=== PATIENT | male | born 1970 | race Caucasian/White ===

== ENCOUNTER 2023-11-02 09:55 | Inpatient (IN) | payer OTHER, SELFPAY ==
[2023-10-31] VITALS (13 sets, daily range): BP systolic 78–122; BP diastolic 42–66; PULSE 87; BMI 49.5; BMI 48.0
[2023-10-31 15:52] LABS: % Basophils 0.4 % (0-2); % Eosinophils 3.8 % (0-6); % Immature Granulocytes 1.7 % (0-0.5); % Lymphocytes 13.4 % (20.5-51.1); % Monocytes 9.4 % (1.7-9.3); % Neutrophils 71.3 % (42.2-75.2); Absolute Basophils 0.1 10^3/uL (0-0.2); Absolute Eosinophils 0.5 10^3/uL (0-0.7); Absolute Immature Granulocytes 0.2 10^3/uL (0-0.05); Absolute Lymphocytes 1.9 10^3/uL (1.2-3.4); Absolute Monocytes 1.3 10^3/uL (0.1-0.6); Hematocrit 36.3 % (39.0-52.0); Hemoglobin 12.7 g/dL (13.0-18.0); Mean Corpuscular Hgb 28.9 pg (27.0-31.0); Mean Corpuscular Volume 82.5 fL (80.0-94.0); Mean Platelet Volume 11.6 fL (7.4-10.4); Nucleated Red Blood Cells % 0 % (-); Platelet Count 152 10^3/uL (130-400); Red Cell Dist. Width 13.9 % (11.5-14.5)
[2023-10-31] MEDS: NSS 1000 IV (16:00)
[2023-10-31 16:06] LABS: ALT (SGPT) 30 U/L (0-50); AST (SGOT) 89 U/L (17-59); Acetaminophen < 10 ug/ml (10-30); Albumin 3.4 g/dl (3.5-5.0); Alcohol None Detected; Alkaline Phosphatase 67 U/L (38-126); Blood Urea Nitrogen 44 mg/dl (9-20); Calcium 8.9 mg/dl (8.4-10.2); Carbon Dioxide 23 mmol/L (22-30); Chloride 101 mmol/L (98-107); Estimated Creatinine Clearance 101 ml/min; Glucose 144 mg/dl (70-99); Potassium 4.3 mmol/L (3.5-5.1); Salicylate < 1.0 mg/dl (2.0-20.0); Sodium 132 mmol/L (135-145); Total Bilirubin 3.2 mg/dl (0.2-1.3); eGFR 56.02
[2023-10-31 16:29] LABS: B.E. -2.6 mmol/L; HCO3 23.7 mmol/L (21-28); O2 Saturation % 96.6 % (94-98); PCO2 46 mmHg (35-48); PO2 85 mmHg (83-108); pH 7.32 (7.35-7.45)
--- NOTE | 2023-10-31 17:29 | ED.GENMED ---
History of Present Illness
General
Chief Complaint: Fall
Source: patient, spouse and ambulance crew
Exam Limitations: none
Time Seen by Provider: 10/31/23 15:40
Travel History
Have you had any contact with someone who has COVID-19?: No
Do you have any symptoms of coronavirus? Fever > 100 degrees, chills, cough, shortness of breath, sore throat, loss of taste or smell, muscle aches, or headache?: No
History of Present Illness
History of Present Illness:
53-year-old male total knee replacement 3 days ago. Discharged 2 days ago. Was mildly lethargic yesterday. More lethargy today and collapsed on the bathroom floor. His knee was in an awkward position under him. Bleeding from the knee. Appeared
deformed per the medics. Patient has no complaints related to the knee. Discussed with the patient's . He is taken 15 narcotic pain pills in the last 2 days.
Past History
Past History
ED Past Medical History: HTN, NIDDM and Other (MS)
ED Past Surgical History: Other (Hernia repair)
Social History
Tobacco: Former smoker
Alcohol: None
Personal:
Living: with family
Review of Systems
Review of Systems
All Other Systems: Not applicable
Constitutional: Denies fever
Respiratory: Reports no symptoms
Cardiac: Reports no symptoms
Phy Exam
Physical Exam
Physical Exam:
GENERAL: Lethargic. Sleepy at times. But arousable. No scalp trauma
EYE: Orbits normal. Pinpoint pupils bilaterally
NECK: Supple, nontender
CARDIAC: Regular rate and rhythm without any obvious murmurs.
LUNGS: No respiratory distress. At times decreased effort. Elevated BMI
ABDOMEN: Soft, without focal tenderness or distention
NEUROLOGICAL: Alert and oriented , grossly non-focal. At times lethargic but will awaken and talk.
SKIN: Warm and dry, no rash or lesion, no discoloration, skin intact.
MUSCULOSKELETAL: Bloody Roger wrap to the right knee. Wound VAC with significant blood under the dressing. Later this was removed as per orthopedics with a well-appearing wound with minimal very superficial dehiscence
PSYCH: Normal and appropriate interaction.
Course
Orders/Labs/Results
Orders:
Orders
10/31/23 Dinner
2200 calorie (18 carb) Diabetic
At Your Request: Full Participation
Does patient need a safe tray?: No
10/31/23 15:40
CT Head W/o Iv Contrast Urgent
Comment:
Reason For Exam: Change in mental status
Cardiac Monitoring- Treatment ONCE
IV Insert/Care/Rem.- Treatment PRN
0.9% Sodium Chloride 1000 ml [Nss] 1,000 ml IV BOLUS
O2 Therapy [RESP] Stat
Titrate/Wean O2 to maintain O2 sat greater than (%): 94
Pulse Ox/cont/shift [RESP] Stat
Quantity: 1
10/31/23 15:41
Electrocardiogram (*1) Stat
Reason for Study: Other
Other Reason for Exam: neuro symptoms
EKG- Treatment ONCE
10/31/23 15:45
Acetaminophen Urgent
Alcohol Urgent
Complete Blood Count/With Diff Urgent
Comprehensive Metabolic Panel Urgent
Salicylate Urgent
10/31/23 15:54
CXR2 [CR Chest - 2 Views ] Urgent
Comment:
Reason For Exam: Hypoxia
Knee, Right 4 or More Views [CR Knee- Right 4 Or More View*] Urgent
Comment:
Reason For Exam: Recent knee replacement. Trauma today
10/31/23 16:18
ABG [Arterial Blood Gas] Urgent
%Oxygen/Room Air: 6l
10/31/23 18:52
Admit/Transfer Patient As Directed
Co-Sign Provider:
Level of Care: Observation services
Assign to:: Telemetry
Physician / Group: Dr. Jcarlos Butler/Hospitalists
Diagnosis: Lethargy
Reason for Telemetry: Arrhythmia
Date to Stop Telemetry: 11/03/23
Time to Stop Telemetry: 11:00
10/31/23 18:54
Code Status As Directed
Resuscitation Status: Full Code
10/31/23 18:59
Ot Eval And Treat Routine
Pt Eval And Treat Routine
Activity Level: As Tolerated
10/31/23 19:00
WOUND/OSTOMY CONSULT Routine
Reason for Consult: Lower extremity wounds
Neurovascular Checks As Directed
Location: Bilateral Lower extremity
Frequency: q4h
10/31/23 19:04
Dextrose 50%-Water [Dextrose 50% Syringe] 12.5 grams IV [id number] PRN
Glucagon [GlucaGen] 1 mg IM PRN PRN
Bedside Glucose Monitoring As Directed
Frequency: AC&HS
Comment: Change to q6h if pt on TPN, tube feeding or not eating
10/31/23 20:00
Flush (0.9% Sodium Chloride) [Flush (Nss)] See Dose Instructions IV PER PROTOCOL
10/31/23 20:16
CR Knee- Right 4 Or More View* Stat
Comment:
Reason For Exam: fall
10/31/23 20:21
BMP [Basic Metabolic Panel] Stat
CBC/No Diff [Complete Blood Count/No Diff] Stat
Drug Screen, Urine [Urine Drug Abuse Screen] Routine
Date Specimen was Collected: 10/31/23
Time Specimen was Collected: 20:19
Fentanyl, Urine Routine
Urine Culture Stat
JUAN C Source: Urine
Specimen Description:
Obtained by: [facility]
Date Specimen was Collected: 10/31/23
Time Specimen was Collected: 20:48
0.9% Sodium Chloride 250 ml [Nss] 250 ml IV BOLUS
10/31/23 20:22
Bladder Scan As Directed
Follow Bladder Retention/Intermittent Cath Algorithm?: Yes
PRN if no void in __ hours: 6
Frequency: Per Retention Algorithm
If Bladder Scan Result >: 400
then:: Straight cath
Straight Cath As Directed
Frequency: Per Retention Algorithm
Additional Instructions: straight cath as needed per acute urinary retention algorithm for 24 hrs
Additional Instructions: for bladder scan greater than 400 mL
10/31/23 20:42
Lactated Ringers [Lr] 500 ml IV BOLUS
10/31/23 20:43
Transfer Patient As Directed
Transfer to: ICU
10/31/23 20:44
Blood Culture Stat
JUAN C Source: Blood/Venous
Specimen Description:
10/31/23 20:55
Vancomycin [Vancocin] 2,000 mg 0.9% Sodium Chloride 500 ml [Nss] 500 ml IV NOW
10/31/23 20:59
Morales Catheter [Catheter- Indwelling] As Directed
Reason for insertion: Acute Retention
Discontinue Date/Time: 11/03/23 0600
10/31/23 21:02
ABG [Arterial Blood Gas] Stat
%Oxygen/Room Air: 93 RA
10/31/23 21:09
Lactic Acid Stat
Procalcitonin Stat
PCT Algorithmm Indication: Sepsis
10/31/23 21:46
Records Request [Obtain Records] As Directed
Dates of Information to be Released: September 2023 to October 2023
Type of Information Requested: Entire Record
Obtain Records from: [facility] in [place], [place]
10/31/23 21:52
ORTHOPEDIC CONSULT Routine
Consulting Provider: Polo Almendarez
Was physician already notified: Yes
Reason for consult: Bleeding from recent RT total knee replacement
10/31/23 22:00
Piperacillin/Tazo 3.375 Gram [Zosyn] 3.375 grams in 50 ml IV Q6H
VANCOMYCIN Pharmacy to Dose [VANCOCIN Pharmacy to Dose] 1 each Pharmacy To Prepare [Call Pharmacy To Prepare] 0 ml IV PER PROTOCOL
10/31/23 22:20
Naloxone [Narcan] 0.4 mg IV NOW STA
10/31/23 22:29
Restraints - Non Violent As Directed
Justification-Patient:: 1-Attempts to remove tube
Restraint Type-: Soft Limb-L&R Wrist/4rail
Apply From (date): 10/31/23
Apply from (time): 22:29
Remove (date): 11/01/23
Remove (time): 23:59
10/31/23 22:47
Assembly Manager Consult Routine
Consulting Provider: Patrice Unger
Was physician already notified: Yes
Reason for consult: Sepsis
0.9% Sodium Chloride 1000 ml [Nss] 1,000 ml IV 75 mls/hr
Acetaminophen [Tylenol] 1,000 mg PO Q6HPRN PRN
Aspirin Low Dose EC [Aspir Low (Enteric Coated)] 81 mg PO BID
Carvedilol [Coreg] 25 mg PO BID
Docusate Sodium [Colace] 100 mg PO BID
Heparin 5,000 units SC Q8
Sennosides [Senokot] 8.6 mg PO BIDPRN PRN
Zolpidem Tartrate [Ambien] 10 mg PO HSPRN PRN
10/31/23 22:47
Consult Notification Routine
Specialty to Notify: Infectious Disease
Date consulting provider notified: 11/01/23
Time consulting provider notified: 07:00
Notified:: Provider
INFECTIOUS DISEASE CONSULT Routine
Consulting Provider: Cale Yusuf
Was physician already notified: No
Reason for consult: sepsis
Activity As Directed
Activity Level: As Tolerated
Intake/ Output As Directed
Frequency: q12h
Vital Signs As Directed
Frequency: Per unit guidelines
DX Deep Vein Thrombosis Video Routine
10/31/23 23:00
Alprazolam [Xanax] 2 mg PO BID
Lactated Ringers [Lr] 1,000 ml IV 125 mls/hr
Pregabalin [Lyrica] 150 mg PO BID
10/31/23 23:29
Troponin I Q6H
10/31/23 23:55
Pt Screening Request from [facility] Routine
Speech Screening from [facility] Routine
11/01/23 03:02
Naloxone [Narcan] 0.4 mg .ROUTE .STK-MED ONE
11/01/23 03:27
Naloxone [Narcan] 0.4 mg IV NOW STA
11/01/23 03:29
Naloxone [Narcan] 0.4 mg IV ONCE PRN PRN
11/01/23 04:53
Complete Blood Count/With Diff IN AM
Comprehensive Metabolic Panel IN AM
Glycohemoglobin (HgbA1c) IN AM
Magnesium IN AM
PT/INR [Prothrombin Time] IN AM
PTT IN AM
Troponin I Q6H
Vancomycin Random IN AM
11/01/23 07:30
Insulin Aspart Corrective Low [Novolog Flexpen-Low Resistance] See Protocol SC AC
11/01/23 08:00
Ezetimibe [Zetia] 10 mg PO DAILY
Multivitamin [Theragran] 1 tablet PO DAILY
Polyethylene Glycol Powder [Miralax] 17 grams PO DAILY
11/01/23 08:32
Arterial Blood Gas Routine
%Oxygen/Room Air: He is on 15 L/min currently
11/01/23 10:57
Bipap [RESP] HS
Patient to use own unit?: No
Inspiratory Pressure (cm H2O): 15
Expiratory Pressure (cm H2O): 8
Instructions: use HS and as needed during day
11/01/23 11:57
Urinalysis Routine
Date Specimen was Collected: 11/01/23
Time Specimen was Collected: 11:48
Urine Microscopic Routine
Date Specimen was Collected: 11/01/23
Time Specimen was Collected: 11:48
Blood Culture Routine
JUAN C Source: Blood/Venous
Specimen Description:
11/01/23 12:51
Alprazolam [Xanax] 0.25 mg PO Q8HPRN PRN
11/01/23 12:53
Precautions As Directed
Type of Precautions: Other
Comment: Fall precautions
11/01/23 12:59
Admit/Transfer Patient As Directed
Co-Sign Provider:
Transfer to: U- Intermediate Care
11/01/23 15:40
Bladder Scan As Directed
Follow Bladder Retention/Intermittent Cath Algorithm?: Yes
PRN if no void in __ hours: 6
Frequency: Per Retention Algorithm
If Bladder Scan Result >: 400
then:: Straight cath
Discontinue Morales Catheter As Directed
Comment:
Straight Cath As Directed
Frequency: Per Retention Algorithm
Additional Instructions: straight cath as needed per acute urinary retention algorithm for 24 hrs
Additional Instructions: for bladder scan greater than 400 mL
11/01/23 15:41
Bladder Scan As Directed
Follow Bladder Retention/Intermittent Cath Algorithm?: Yes
PRN if no void in __ hours: 6
Frequency: Per Retention Algorithm
If Bladder Scan Result >: 400
then:: Straight cath
Straight Cath As Directed
Frequency: Per Retention Algorithm
Additional Instructions: straight cath as needed per acute urinary retention algorithm for 24 hrs
Additional Instructions: for bladder scan greater than 400 mL
11/02/23 00:45
Acetaminophen 1000MG/100Ml [Ofirmev] 1,000 mg in 100 ml IV ONCE
Acetaminophen IV Indication:: Targeted Temp Management
11/02/23 04:22
Complete Blood Count/With Diff IN AM
Comprehensive Metabolic Panel IN AM
Magnesium IN AM
Phos [Phosphorus] IN AM
Venous Blood Gas IN AM
%Oxygen/Room Air: 4L/min
11/02/23 07:49
Transfer Patient As Directed
Transfer to: Medical/Surgical
11/02/23 08:00
Meloxicam [Mobic] 15 mg PO DAILY
Abnormal Lab Results
10/31/23 10/31/23 10/31/23
15:45 16:18 20:21
WBC 14.0 H 10^3/uL 14.3 H 10^3/uL
(4.8-10.8) (4.8-10.8)
RBC 4.40 L 10^6/uL 4.35 L 10^6/uL
(4.70-6.10) (4.70-6.10)
Hgb 12.7 L g/dL 12.4 L g/dL
(13.0-18.0) (13.0-18.0)
Hct 36.3 L % 36.8 L %
(39.0-52.0) (39.0-52.0)
MCHC
MPV 11.6 H fL 12.1 H fL
(7.4-10.4) (7.4-10.4)
Abs Immat Gran (auto) 0.2 H 10^3/uL
(0-0.05)
Absolute Neuts (auto) 10.0 H 10^3/uL
(1.4-6.5)
Absolute Monos (auto) 1.3 H 10^3/uL
(0.1-0.6)
Immature Gran % 1.7 H %
(0-0.5)
Lymphocytes % 13.4 L %
(20.5-51.1)
Monocytes % 9.4 H %
(1.7-9.3)
Eosinophils %
PT
APTT
pH 7.32 L
(7.35-7.45)
pCO2
pO2
ABG O2 Sat (Measured)
VBG pO2
VBG HCO3
Sodium 132 L mmol/L 132 L mmol/L
(135-145) (135-145)
Carbon Dioxide 20 L mmol/L
(22-30)
BUN 44 H mg/dl 45 H mg/dl
(9-20) (9-20)
Creatinine 1.5 H mg/dL 1.7 H mg/dL
(0.7-1.3) (0.7-1.3)
Glucose 144 H mg/dl 133 H mg/dl
(70-99) (70-99)
Hemoglobin A1c
Total Bilirubin 3.2 H mg/dl
(0.2-1.3)
AST 89 H U/L
(17-59)
Troponin I
Total Protein 6.0 L g/dl
(6.3-8.2)
Albumin 3.4 L g/dl
(3.5-5.0)
Procalcitonin
Urine Ketones
Urine Occult Blood
Urine RBC
Urine Bacteria
Urine Glucose
Salicylates < 1.0 L mg/dl
(2.0-20.0)
Urine Opiates Screen Positive H
(Negative)
Ur Oxycodone Screen Positive H
(Negative)
Acetaminophen < 10 L ug/ml
(10-30)
U Benzodiazepines Scrn Positive H
(Negative)
POC Glucose
10/31/23 10/31/23 10/31/23
21:02 21:09 23:29
WBC
RBC
Hgb
Hct
MCHC
MPV
Abs Immat Gran (auto)
Absolute Neuts (auto)
Absolute Monos (auto)
Immature Gran %
Lymphocytes %
Monocytes %
Eosinophils %
PT
APTT
pH 7.34 L
(7.35-7.45)
pCO2
pO2
ABG O2 Sat (Measured)
VBG pO2
VBG HCO3
Sodium
Carbon Dioxide
BUN
Creatinine
Glucose
Hemoglobin A1c
Total Bilirubin
AST
Troponin I 0.160 H* ng/ml
Total Protein
Albumin
Procalcitonin 0.64 H ng/ml
(0.0-0.25)
Urine Ketones
Urine Occult Blood
Urine RBC
Urine Bacteria
Urine Glucose
Salicylates
Urine Opiates Screen
Ur Oxycodone Screen
Acetaminophen
U Benzodiazepines Scrn
POC Glucose
11/01/23 11/01/23 11/01/23
03:03 04:53 07:53
WBC
RBC 4.04 L 10^6/uL
(4.70-6.10)
Hgb 11.3 L g/dL
(13.0-18.0)
Hct 35.0 L %
(39.0-52.0)
MCHC 32.3 L g/dL
(33.0-37.0)
MPV 11.9 H fL
(7.4-10.4)
Abs Immat Gran (auto)
Absolute Neuts (auto) 7.4 H 10^3/uL
(1.4-6.5)
Absolute Monos (auto) 1.0 H 10^3/uL
(0.1-0.6)
Immature Gran %
Lymphocytes % 14.6 L %
(20.5-51.1)
Monocytes % 9.6 H %
(1.7-9.3)
Eosinophils %
PT 15.7 H Sec
(11.4-14.6)
APTT 45.8 H Sec
(23.4-35.0)
pH
pCO2
pO2
ABG O2 Sat (Measured)
VBG pO2
VBG HCO3
Sodium 134 L mmol/L
(135-145)
Carbon Dioxide
BUN 41 H mg/dl
(9-20)
Creatinine
Glucose 150 H mg/dl
(70-99)
Hemoglobin A1c 7.0 H %
(4.0-5.6)
Total Bilirubin 2.6 H mg/dl
(0.2-1.3)
AST 78 H U/L
(17-59)
Troponin I 0.118 H* D ng/ml
Total Protein 5.6 L g/dl
(6.3-8.2)
Albumin 3.0 L g/dl
(3.5-5.0)
Procalcitonin
Urine Ketones
Urine Occult Blood
Urine RBC
Urine Bacteria
Urine Glucose
Salicylates
Urine Opiates Screen
Ur Oxycodone Screen
Acetaminophen
U Benzodiazepines Scrn
POC Glucose 133 H mg/dl 152 H mg/dl
(70-99) (70-99)
11/01/23 11/01/23 11/01/23
08:32 09:37 11:57
WBC
RBC
Hgb
Hct
MCHC
MPV
Abs Immat Gran (auto)
Absolute Neuts (auto)
Absolute Monos (auto)
Immature Gran %
Lymphocytes %
Monocytes %
Eosinophils %
PT
APTT
pH 7.30 L
(7.35-7.45)
pCO2 52 H mmHg
(35-48)
pO2 169 H mmHg
(83-108)
ABG O2 Sat (Measured) 98.9 H %
(94-98)
VBG pO2
VBG HCO3
Sodium
Carbon Dioxide
BUN
Creatinine
Glucose
Hemoglobin A1c
Total Bilirubin
AST
Troponin I
Total Protein
Albumin
Procalcitonin
Urine Ketones 1+ A
(Negative)
Urine Occult Blood 2+ A
(Negative)
Urine RBC 3-6 A /HPF
(0-2)
Urine Bacteria Few A
(Negative)
Urine Glucose Trace A
(Negative)
Salicylates
Urine Opiates Screen
Ur Oxycodone Screen
Acetaminophen
U Benzodiazepines Scrn
POC Glucose 161 H mg/dl
(70-99)
11/01/23 11/01/23 11/01/23
12:34 16:27 21:14
WBC
RBC
Hgb
Hct
MCHC
MPV
Abs Immat Gran (auto)
Absolute Neuts (auto)
Absolute Monos (auto)
Immature Gran %
Lymphocytes %
Monocytes %
Eosinophils %
PT
APTT
pH
pCO2
pO2
ABG O2 Sat (Measured)
VBG pO2
VBG HCO3
Sodium
Carbon Dioxide
BUN
Creatinine
Glucose
Hemoglobin A1c
Total Bilirubin
AST
Troponin I
Total Protein
Albumin
Procalcitonin
Urine Ketones
Urine Occult Blood
Urine RBC
Urine Bacteria
Urine Glucose
Salicylates
Urine Opiates Screen
Ur Oxycodone Screen
Acetaminophen
U Benzodiazepines Scrn
POC Glucose 156 H mg/dl 141 H mg/dl 186 H mg/dl
(70-99) (-99) (70-99)
11/02/23 11/02/23
04:22 07:41
WBC
RBC 3.76 L 10^6/uL
(4.70-6.10)
Hgb 10.8 L g/dL
(13.0-18.0)
Hct 31.9 L %
(39.0-52.0)
MCHC
MPV 11.7 H fL
(7.4-10.4)
Abs Immat Gran (auto)
Absolute Neuts (auto)
Absolute Monos (auto) 0.7 H 10^3/uL
(0.1-0.6)
Immature Gran %
Lymphocytes %
Monocytes % 10.6 H %
(1.7-9.3)
Eosinophils % 6.1 H %
(0-6)
PT
APTT
pH
pCO2
pO2
ABG O2 Sat (Measured)
VBG pO2 224 H mmHg
(30-50)
VBG HCO3 27.9 H mmol/L
(22-27)
Sodium
Carbon Dioxide
BUN 21 H mg/dl
(9-20)
Creatinine 0.6 L mg/dL
(0.7-1.3)
Glucose 158 H mg/dl
(70-99)
Hemoglobin A1c
Total Bilirubin 2.5 H mg/dl
(0.2-1.3)
AST
Troponin I
Total Protein 5.2 L g/dl
(6.3-8.2)
Albumin 2.7 L g/dl
(3.5-5.0)
Procalcitonin
Urine Ketones
Urine Occult Blood
Urine RBC
Urine Bacteria
Urine Glucose
Salicylates
Urine Opiates Screen
Ur Oxycodone Screen
Acetaminophen
U Benzodiazepines Scrn
POC Glucose 167 H mg/dl
(70-99)
11/02/23 04:22
11/02/23 04:22
Vital Signs
Initial and Last Documented VS:
Initial Vital Signs
Temp Pulse Resp Pulse Ox
98.8 F 78 21 94
10/31/23 15:40 10/31/23 15:40 10/31/23 15:40 10/31/23 15:40
Last Documented Vital Signs
Temp Pulse Resp BP Pulse Ox
98.6 F 68 20 165/96 95
11/02/23 11:19 11/02/23 11:19 11/02/23 11:19 11/02/23 11:20 11/02/23 12:00
*Radiology
Radiology exam reviewed: preliminary read by ED provider (Negative x-ray) and radiology read reviewed (Negative x-rays)
*Pulse Oximetry
Patient hypoxic: no
*EKG
Interpreted by ED Provider?: Yes
Interpretation: abnormal
Comparison EKG: changes noted
Heart Rate: 78
Rate: normal
Rhythm: sinus
Tolono: normal axis
Interval: normal interval
QRS Pattern: normal QRS
Ischemia: non-specific ST changes
*Contact Center Associate Interpretation
Rate: normal
Interpretation: normal
Heart Rate: 80
Rhythm: sinus
*Critical Care Note
Total Time (30-74mins, 75-104mins- exclusive of procedures): Not Applicable
Update Note
Update Note:
Patient is remained stable. More alert than earlier. Likely all medication and secondary respiratory issues also influenced by his BMI. Discussed with patient's orthopedist. Right knee was rewrapped sterilely.
ED Attending Note
-
Portions of this chart may have been created with voice recognition software.� Occasional wrong word or��sound alike� substitutions may have occurred due to the inherent limitations of voice recognition software.
Discharge Plan
Departure
Patient Disposition: Admit
Date of Disposition: 10/31/23
Time of Disposition: 17:39
Presentation/result/management discussed w/ accepting MD/DO: Hospitalist
Discharge Problem:
Change in mental status/lethargy, Likely secondary to medications, Recent knee replaced, Dehydration
Interventions
Interventions:
*Risk Screen - Suicide Last Done: 10/31/23 16:27
*General Assessment Last Done: 10/31/23 15:50
*Neglect/Abuse Screening Last Done: 10/31/23 15:50
ED- Fall Risk Assessment Last Done: 10/31/23 16:26
*ED COVID-19 Vaccine History Last Done: 10/31/23 15:50
*Nursing Disposition Last Done: 10/31/23 22:15
ED-Musculoskeletal Assessment Last Done: 10/31/23 15:50
ED- Neurological Assessment Last Done: 10/31/23 15:50
ED-Skin Assessment Last Done: 10/31/23 15:50
Discharge Date and Time
Discharge Date/Time: 10/31/23 22:15
--- NOTE | 2023-10-31 18:27 | HPS.HSE ---
Family Physician
-
Family Physician:
Chief Complaint
-
Lethargy, Weakness, Passed out
History of Present Illness
53 y/o male with past medical history of requiring narcan with narcotic pain medications, multiple sclerosis on Copaxone, hypertension and type 2 diabetes mellitus with neuropathy, and hyperlipidemia presented after having a total knee replacement 3
days go, and discharged 2 days ago. Patient was lethargic today and fell on the bathroom floor; reportedly he took 15 narcotic pain medications in the past 2 days. Patient was not a great historian so his helped with patient's history. Patient
denied any dizziness, chest pain or palpitations. Patient recently had knee right surgery at [facility] by Dr. Saucedo who is with [facility].
Medical History
Past Medical History
Past Medical History: Reports Other (As per HPI above)
Past Surgical History: Reports Orthopedic and Other (Hernia Repair)
Social History
Tobacco: Non-smoker
Alcohol: None
Drug: None
Family History
Family History: Diabetes and Other (Heart Disease, Thyroid)
Allergies / Home Medications
Allergies reflects when Allergies were last updated in [facility].
Home Medications with original date entered in [facility]
Allergy/Medication List:
Allergies
Allergy/AdvReac Type Severity Reaction Status Date / Time
No Known Allergies Allergy Unverified 01/01/21 13:38
Home Medications
acetaminophen 500 mg tablet (Tylenol Extra Strength) 1,000 mg PO Q6HPRN PRN mild pain 10/31/23
alprazolam 2 mg tablet (Xanax) 2 mg PO BID 10/31/23
aspirin 81 mg tablet,delayed release 81 mg PO BID 10/31/23
carvedilol 25 mg tablet (Coreg) 25 mg PO BID 10/31/23
dapagliflozin propanediol 10 mg tablet (Farxiga) 10 mg PO DAILY 10/31/23
ezetimibe 10 mg tablet (Zetia) 10 mg PO DAILY 10/31/23
losartan 100 mg tablet 100 mg PO DAILY 10/31/23
meloxicam 15 mg tablet 15 mg PO DAILYPRN PRN mild pain 10/31/23
oxycodone 5 mg tablet 5 mg PO Q6HPRN PRN severe pain 10/31/23
pregabalin 150 mg capsule (Lyrica) 150 mg PO BID 10/31/23
sennosides 8.6 mg tablet (senna) 8.6 mg PO BIDPRN PRN consstipation 10/31/23
therapeutic multivitamin 1 tab PO DAILY 10/31/23
zolpidem 10 mg tablet (Ambien) 10 mg PO HSPRN PRN sleep 10/31/23
Review of Systems
-
A 12 point ROS was completed and negative except as noted: Yes
Physical Exam
Vital Signs
Vital Signs
Temp Pulse Resp BP Pulse Ox
98.8 F 77 18 120/62 93
10/31/23 15:40 10/31/23 17:34 10/31/23 17:34 10/31/23 17:34 10/31/23 17:34
Physical Exam
General: No Apparent Distress, Comfortable and Conversant
HEENT: NormoCephalic; No Moist mucous membranes
Respiratory: Clear
Cardiac: S1/S2 and Regular Rhythm
GI: Soft, Non Tender and Normal Bowel Sounds
Musculoskeletal: No Cyanosis and Other (Right knee in dressing for post knee replacement)
Skin: Warm and Dry
Neuro: Awake, Alert and AO x 3
Psych: Calm and Intact Judgment/Insight
Laboratory Results
-
10/31/23 15:45
10/31/23 15:45
Laboratory Results
pH 7.32 (7.35-7.45) L 10/31/23 16:18
pCO2 46 mmHg (35-48) 10/31/23 16:18
pO2 85 mmHg (83-108) 10/31/23 16:18
HCO3 23.7 mmol/L (21-28) 10/31/23 16:18
Total Bilirubin 3.2 mg/dl (0.2-1.3) H 10/31/23 15:45
AST 89 U/L (17-59) H 10/31/23 15:45
ALT 30 U/L (0-50) 10/31/23 15:45
Alkaline Phosphatase 67 U/L (38-126) 10/31/23 15:45
Impression/Plan
-
Assessment/Plan
Lethargy Episodes Post-Op Recent Surgery
Recent Total Knee Replacement 3 days prior to presentation
-Reportedly he took 15 narcotic pain pills in the past 2 days
-He has a history of needing Narcan from narcotics
-Will consider echo
-Avoid all narcotic pain medications
-Continue home scheduled Xanax to avoid withdrawal or seizures
-Lovenox DVT PPx
-Wound care
-Neurovascular checks
-Continue tele monitoring
-Will consider ortho consult
Concern for Acute Kidney Injury
-Patient with no PO intake for 1-2 days on presentation
-Continue IV fluids
Multiple Sclerosis on Copaxone
-Asked patient's to bring in the medicine so he can continue it here
Hypertension - Hold home Losartan given renal function
Type 2 Diabetes Mellitus - Sliding Scale Insulin and Accuchecks. Hold Farxiga for now.
Code Status: Full Code
DVT PPx: Heparin
[2023-10-31 20:35] LABS: Hematocrit 36.8 % (39.0-52.0); Hemoglobin 12.4 g/dL (13.0-18.0); Mean Corp Hgb Conc. 33.7 g/dL (33.0-37.0); Mean Corpuscular Hgb 28.5 pg (27.0-31.0); Mean Corpuscular Volume 84.6 fL (80.0-94.0); Mean Platelet Volume 12.1 fL (7.4-10.4); Platelet Count 186 10^3/uL (130-400); Red Blood Cell Count 4.35 10^6/uL (4.70-6.10); Red Cell Dist. Width 13.9 % (11.5-14.5); White Blood Cell Count 14.3 10^3/uL (4.8-10.8)
--- NOTE | 2023-10-31 20:39 | W.PN.UPDATE ---
Addendum entered and electronically signed by CHANDAN Franco 10/31/23 21:48:
last BP 94/60 MAP 67, bolus running at present. Dr. Lazo aware of the situation at present, will consult Ortho and will consult ID.
Original Note:
Update Note
Progress Note Update
RN notified MANAGER DAT[employer]MINISTRATION that patient noted to be on the floor with Right knee kneeling on the floor and blood noted outside the dressing. Patient seen and evaluated. patient sitting in the chair with Right leg up, Opened the dressing and noted open area with
blood with out oozing out at present, some steri strips in place. + pulses, neuro-vascular intact. Patient mildly lethargic, conversive, noted BP on low side, 80's/40's HR 80's, RA 95 RR 16, Afebrile. Will give NSS bolus, ordered Right knee Xray,
Stat ABG, Stat labs, Stat EKG, UA, Blood culture, lactic acid, procalcitonin and will start Vancomycin. Will transfer patient to ICU for possible sepsis. FALSEWORK BUILDER made aware. Dr. Zeng is aware.
[2023-10-31 20:48] LABS: Amphetamines Negative (Negative); Barbiturates Negative (Negative); Benzodiazepines Positive (Negative); Blood Urea Nitrogen 45 mg/dl (9-20); Buprenorphine Negative (Negative); Carbon Dioxide 20 mmol/L (22-30); Chloride 102 mmol/L (98-107); Cocaine Negative (Negative); Estimated Creatinine Clearance 89 ml/min; Glucose 133 mg/dl (70-99); Marijuana Negative (Negative); Methadone Negative (Negative); Methamphetamines Negative (Negative); Opiates Positive (Negative); Phencyclidine Negative (Negative); Sodium 132 mmol/L (135-145); Tricyclic Antidepressants Negative (Negative); eGFR 48.21
--- NOTE | 2023-10-31 20:51 | PHA.VAN.IN ---
Assessment
- Assessment
Renal Function: Unknown baseline (likely elevated compared to baseline at 1.7 vs ~0.6 in 2020)
Plan
- Plan
Initial / Loading Dose: 2000mg - administration pending
Maintenance Regimen: dosing by level
Monitoring: random 10/31 599
Given BMI, patient likely will be slow to accumulate - follow levels
Pharmacokinetics Vancomycin I
- -
Patient Age: 53
Patient Sex: Male
Vancomycin Day #: 1
Indication: [facility]
Requesting Provider: Maureen Leo
Pertinent Antimicrobial Allergies:
NKDA
Height / Weight:
Height 6 ft 3 in
Actual Weight 179.8 kg
Pertinent Past Medical History: BMI ~49.5, DM, TKA 3 days [employer], MS
- Vital Signs / Lab Results
Temp Pulse Resp BP Pulse Ox
98.8 F 80 24 120/62 95
10/31/23 15:40 10/31/23 18:00 10/31/23 18:00 10/31/23 17:34 10/31/23 19:45
Lab Results - Hematology
10/31/23 10/31/23
15:45 20:21
WBC 14.0 H 14.3 H
Lab Results - Chemistry
10/31/23 10/31/23
15:45 20:21
BUN 44 H 45 H
Creatinine 1.5 H 1.7 H
Estimated Creat Clear 101 89
Albumin 3.4 L
[2023-10-31 20:58] LABS: Potassium 4.2 mmol/L (3.5-5.1)
[2023-10-31 21:04] LABS: Fentanyl, Urine Negative (Negative)
[2023-10-31 21:08] LABS: B.E. -2.2 mmol/L; HCO3 23.7 mmol/L (21-28); PCO2 44 mmHg (35-48); PO2 92 mmHg (83-108); pH 7.34 (7.35-7.45)
[2023-10-31] MEDS: VANCOCIN 540 MG IV (21:12)
[2023-10-31] MEDS: LR 500 IV (21:17)
[2023-10-31 21:29] LABS: Lactic Acid 1.7 mmol/L (0.7-2.0)
[2023-10-31 21:57] LABS: Procalcitonin 0.64 ng/ml (0.0-0.25)
[2023-10-31] MEDS: NARCAN 0.400000000000000022 MG IV (22:33)
[2023-10-31] MEDS: ZOSYN 50 IV (22:38)
--- NOTE | 2023-10-31 23:00 | PTCARENOTE ---
PM meds not given, pt very difficult to arouse and unable to swallow pills at this time.
[2023-10-31] MEDS: NSS 250 IV (23:11)
[2023-10-31] MEDS: COREG PO (23:14)
[2023-10-31] MEDS: COLACE PO (23:14)
[2023-10-31] MEDS: ASPIR LOW (ENTERIC COATED) PO (23:14)
[2023-10-31] MEDS: HEPARIN 5000 UNITS SC (23:21)
[2023-10-31] MEDS: LR 1000 IV (23:37)
[2023-11-01] VITALS (78 sets, daily range): BP systolic 58–150; BP diastolic 42–124; PULSE 66–68; O2SAT 97; BMI 48.0
--- NOTE | 2023-11-01 00:12 | PTCARENOTE ---
received patient from the ED awake but confused conversation. mumbling at times, difficult to understand. pt slid from stretcher to bed with 6 person assist. difficulty staying awake for longer than 10seconds. sats in the 70's on 6L. respiratory
called to place patient on midflow. pt on 15L midflow still desatting to the 80's. Narcan given. pt woke up, talking, alert and oriented x3, pleasant, telling jokes. BP improved. after approximately 15 mins pt fell back asleep,able to arouse but
couldn't stay awake for longer than 10 seconds again, sats remain in the 80's. placed on cpap 10L.
[2023-11-01 03:14] LABS: Glucose - Point of Care 133 mg/dl (70-99)
--- NOTE | 2023-11-01 03:25 | PTCARENOTE ---
pt unresponsive. no response to sternal rub. narcan given. pt woke up confused, oriented to self only. trying to take off cpap mask. put back on midflow while awake.
[2023-11-01] MEDS: NARCAN 0.400000000000000022 MG IV (03:35)
--- NOTE | 2023-11-01 04:07 | W.PN.UPDATE ---
Update Note
Progress Note Update
2230 Patient presented to the ICU sleepy with decrease respiration. His�presentation is concerning for opioid overdose based on history and recent surgery pain management. Narcan was given and patient became responsive and able to manage airway
and RR increased. �
�
2330 Patient placed on Cpap for periods of apnea.�
�
0330 Patient noted to be obtunded repeat Narcan dosing and responded appropriately. PRN Narcan ordered. �
[2023-11-01] MEDS: ZOSYN 50 IV (05:03)
[2023-11-01 05:09] LABS: % Basophils 0.4 % (0-2); % Eosinophils 4.8 % (0-6); % Immature Granulocytes 0.4 % (0-0.5); % Lymphocytes 14.6 % (20.5-51.1); % Monocytes 9.6 % (1.7-9.3); % Neutrophils 70.2 % (42.2-75.2); Absolute Eosinophils 0.5 10^3/uL (0-0.7); Absolute Lymphocytes 1.5 10^3/uL (1.2-3.4); Absolute Neutrophils 7.4 10^3/uL (1.4-6.5); Hemoglobin 11.3 g/dL (13.0-18.0); Mean Corp Hgb Conc. 32.3 g/dL (33.0-37.0); Mean Corpuscular Volume 86.6 fL (80.0-94.0); Mean Platelet Volume 11.9 fL (7.4-10.4); Nucleated Red Blood Cells % 0 % (-); Platelet Count 145 10^3/uL (130-400); Red Blood Cell Count 4.04 10^6/uL (4.70-6.10); Red Cell Dist. Width 14.1 % (11.5-14.5); White Blood Cell Count 10.6 10^3/uL (4.8-10.8)
[2023-11-01 05:20] LABS: ALT (SGPT) 36 U/L (0-50); AST (SGOT) 78 U/L (17-59); Alkaline Phosphatase 73 U/L (38-126); Blood Urea Nitrogen 41 mg/dl (9-20); Calcium 8.5 mg/dl (8.4-10.2); Carbon Dioxide 24 mmol/L (22-30); Chloride 105 mmol/L (98-107); Estimated Creatinine Clearance 124 ml/min; Glucose 150 mg/dl (70-99); Magnesium 2.2 mg/dl (1.6-2.3); Potassium 4.2 mmol/L (3.5-5.1); Sodium 134 mmol/L (135-145); Total Bilirubin 2.6 mg/dl (0.2-1.3); Total Protein 5.6 g/dl (6.3-8.2); eGFR > 60.00
[2023-11-01 05:24] LABS: INR 1.26; PT 15.7 Sec (11.4-14.6)
[2023-11-01 05:25] LABS: APTT 45.8 Sec (23.4-35.0); Vancomycin Random 11.2 ug/ml
[2023-11-01 05:41] LABS: Troponin I 0.118 ng/ml
--- NOTE | 2023-11-01 07:21 | CON.ID ---
Consultation
-
Date/Time Consultation Requested: 10/31/2023 2247
Date/Time Consultation Performed: 11/01/2023 07:15
Requesting Provider: Dr. Leo
Performing Provider: Dr. Yusuf
Reason for Consultation: Sepsis
Chief Complaint / Past History
History of Present Illness
Jeramie Jensen is a 53-year-old male being evaluated at the request of Dr. Leo regarding sepsis. History is obtained from chart review. Little history was obtained from the patient secondary to significant somnolence.
The patient has a significant past medical history of diabetes mellitus, multiple sclerosis, and underwent a total knee replacement approximately 4 days ago at a facility in [place]. He was discharged 3 days ago to home. Per review of notes he
was mildly lethargic the day before yesterday and yesterday reportedly collapsed on the bathroom floor. When found, his knee was 'in an awkward position' and there was some bleeding noted from the knee. Notes indicate the patient has taken
significant narcotics over the past 2 days.
Workup in the ER revealed a leukocytosis, and ongoing bleeding from the knee, along with hypotension and Infectious Diseases is asked to manage further antibiotic therapy.
Past History
Additional Past Medical History:
HTN
DM
Multiple sclerosis (on Copaxone)
Additional Past Surgical History:
Hernia repair
Total right knee replacement
Allergy History:
No Known Allergies Allergy (Unverified 01/01/21 13:38)
Medications Reviewed: Yes
Current Antibiotics:
Vancomycin (dosed per pharmacy)
Zosyn 3.375 g IV every 6 hours
Social History
Tobacco: Non-Smoker
Alcohol: None
Drug: None
Personal:
Living: With Family
Review of Systems
Vital Signs
Temp Pulse Resp BP Pulse Ox
97.5 F 82 20 135/60 94
11/01/23 03:02 11/01/23 06:30 11/01/23 06:30 11/01/23 06:30 11/01/23 06:30
Physical Exam
Physical Exam
Constitutional: No Acute Distress, Comfortable, Non-toxic and Obese
Head: Normocephalic
Eyes: Pupils Equal, Pupils Round, No Conjunctival Hemorrhage and Sclera Anicteric
Oral: No Thrush and No Ulcers
Cardiovascular: Regular Rate and S1/S2; Negative S3/S4 or Murmur
Pulmonary: Clear and Non Labored; Negative Wheezes, Rales or Rhonchi
Gastrointestinal: Soft, Non Distended, Normal Bowel Sounds, No Rebound and No Guarding
Genito-Urinary: Morales and Clear Urine; Negative Turbid Urine or Hematuria
Extremities: Edema; Negative Cyanosis
Skin: Warm and Dry; Negative Rash or Jaundice
Wound: Other (Right knee incisional area with minimal periwound erythema. No bleeding at present.)
Neurological: Other (Somnolent; somewhat difficult to arouse, but arousable.)
Psychological: Calm
Lab / Diagnostic Study Results
11/01/23 04:53
11/01/23 04:53
Abs Immat Gran (auto) 0.0 10^3/uL (0-0.05) 11/01/23 04:53
Absolute Neuts (auto) 7.4 10^3/uL (1.4-6.5) H 11/01/23 04:53
Absolute Lymphs (auto) 1.5 10^3/uL (1.2-3.4) 11/01/23 04:53
Absolute Monos (auto) 1.0 10^3/uL (0.1-0.6) H 11/01/23 04:53
Absolute Basos (auto) 0.0 10^3/uL (0-0.2) 11/01/23 04:53
Immature Gran % 0.4 % (0-0.5) 11/01/23 04:53
Neutrophils % 70.2 % (42.2-75.2) 11/01/23 04:53
Lymphocytes % 14.6 % (20.5-51.1) L 11/01/23 04:53
Monocytes % 9.6 % (1.7-9.3) H 11/01/23 04:53
Eosinophils % 4.8 % (0-6) 11/01/23 04:53
Basophils % 0.4 % (0-2) 11/01/23 04:53
PT 15.7 Sec (11.4-14.6) H 11/01/23 04:53
INR 1.26 11/01/23 04:53
Lactic Acid 1.7 mmol/L (0.7-2.0) 10/31/23 21:09
Procalcitonin 0.64 ng/ml (0.0-0.25) H 10/31/23 21:09
Microbiology Results
Micro:
11/01/23 04:53 Blood Culture - Pending
Blood/Venous
10/31/23 20:21 Urine Culture - Pending
Urine
Imaging:
10/31/2023 X-ray (right knee): Intact total knee arthroplasty. There is suprapatellar joint fluid and adjacent soft tissue swelling noted. Please see full dictation for additional detail. Film personally viewed.
10/31/2023 CXR (2 view): Low lung volumes noted. No focal consolidation, pleural effusion or pneumothorax seen. Cardiac silhouette mildly enlarged. Film personally viewed.
Assessment / Plan
Syncope
Leukocytosis; improved
Suspected narcotic overdose
S/p right total knee arthroplasty
Recommendations:
Leukocytosis has quickly resolved. No clinical evidence of joint infection at present.
Discontinue further antibiotics with close observation. Blood culture and urine culture currently pending.
- A review of orders reveals no UA previously ordered. Will order one now, and if negative will discontinue urine culture.
Follow white count and temperature curve.
Follow clinical knee exam.
[2023-11-01 08:04] LABS: Glucose - Point of Care 152 mg/dl (70-99)
[2023-11-01] MEDS: LR 1000 IV (08:05)
--- NOTE | 2023-11-01 08:10 | CON.INTV ---
Addendum entered and electronically signed by Patrice Unger MD 11/01/23 13:01:
Additional assessment/plan:
#Hypotension - this is resolved and he is hemodynamically stable. Would stop IV fluids as he has ADA diet ordered and is tolerating this. Maintain MAP >65. Continue with his home anti-hypertensives.
Original Note:
Consultation
Consultation Request
Date/Time Consultation Requested: 10/31/20232246
Date/Time Consultation Performed: 11/01/2023 - 802
Requesting Provider: CHANDAN Daily
Performing Provider: Patrice Unger MD
Reason for Consultation: AMS
Medical History
-
Chief Complaint: Passed out/weakness
History of Present Illness:
53-year-old morbidly obese male with a past medical history of multiple sclerosis, hypertension, DM type II, and chronic opioid use disorder who presents from home after falling in the bathroom. He apparently took oxycodone and Xanax and fell in
the bathroom while trying to walk and injured his right knee. When he arrived to the ER he had a bloody Roger wrap to his right knee with a wound VAC underneath it. This is due to her recent knee surgery at [facility] 3 days [place]. He was
discharged 2 days ago and has been excessively taking pain medications postoperatively with 15 narcotic pain medications consumed over the last 48 hours. Of note, he has not a good historian and in the ER the patient's had to help with the
HPI. Initial vitals were significant for hypotension to 102/60 and SpO2 94% on 6 L/min nasal cannula. Labs showed leukocytosis to 14, anemia to 12.7, initial blood gas showed mild respiratory acidosis with pH 7.32, pCO2 46, creatinine 1.5, BUN 44,
serum bicarbonate level 23, hyponatremic to 132, AST 89 and procalcitonin 0.64. UDS positive for oxycodone and opiates as well as benzodiazepines. POCT glucose was 133. Urine cultures and blood cultures collected. Head CT showed no acute
intracranial abnormality, and CXR showed no acute cardiopulmonary process. Knee XR showed intact TKA with suprapatellar joint fluid and adjacent soft tissue swelling. He was given 1 L NS 0.9% and given his hypotension with lethargy he was
transferred to the ICU for further care. Critical care services consulted for additional management/recommendations.
Patient was seen and evaluated today at bedside. He was given another 750 mL total of IV fluids overnight and started on LR at 125 mL an hour. He had to be given 0.4 mg Narcan twice overnight and this morning he is still sleepy but easily
arousable and answering my questions appropriately. He is thirsty and wants to drink. Current vitals show: BP 112/63, heart rate 68, respiratory rate 16 and SpO2 93% on 4 L/min nasal cannula. Last blood gas this morning shows hypercapnia with pH
7.3, pCO2 52. Patient is AAOx3. He denies shortness of breath, chest pain, headache, abdominal pain, fevers or chills. He denies using CPAP at home nor during history of sleep apnea, and he is amenable to using PAP if needed during the day and
with sleep.
PMHx: MS, hypertension, DM type II c/b neuropathy, chronic opioid use disorder, morbid obesity
PSHx: Hernia repair, right TKA
Past Medical History
Past Medical History: Other (Above as per HPI)
Past Surgical History: Other (Above as per HPI)
Social History
Tobacco: Non-smoker
Alcohol: None
Drug: None
Family History
Family History: CAD, Diabetes and Other (Thyroid disease)
Allergies / Home Medications
Allergies
Allergy/AdvReac Type Severity Reaction Status Date / Time
No Known Allergies Allergy Unverified 01/01/21 13:38
Home Medications
�Medication �Instructions �Recorded �Confirmed �Last Taken �Type
acetaminophen 500 mg tablet 1,000 mg PO Q6HPRN PRN mild pain 10/31/23 10/31/23 10/31/23 History
(Tylenol Extra Strength)
alprazolam 2 mg tablet (Xanax) 2 mg PO BID 03/10/31/23 10/31/23 History
aspirin 81 mg tablet,delayed 81 mg PO BID 10/31/23 10/31/23 10/31/23 History
release
carvedilol 25 mg tablet (Coreg) 25 mg PO BID 10/31/23 10/31/23 Unknown History
dapagliflozin propanediol 10 mg 10 mg PO DAILY 10/31/23 10/31/23 Unknown History
tablet (Farxiga)
ezetimibe 10 mg tablet (Zetia) 10 mg PO DAILY 10/31/23 10/31/23 Unknown History
losartan 100 mg tablet 100 mg PO DAILY 10/31/23 10/31/23 10/31/23 History
meloxicam 15 mg tablet 15 mg PO DAILYPRN PRN mild pain 10/31/23 10/31/23 Unknown History
oxycodone 5 mg tablet 5 mg PO Q6HPRN PRN severe pain 10/31/23 10/31/23 10/31/23 History
pregabalin 150 mg capsule (Lyrica) 150 mg PO BID 10/31/23 10/31/23 10/31/23 History
sennosides 8.6 mg tablet (senna) 8.6 mg PO BIDPRN PRN consstipation 10/31/23 10/31/23 Unknown History
therapeutic multivitamin 1 tab PO DAILY 10/31/23 10/31/23 Unknown History
zolpidem 10 mg tablet (Ambien) 10 mg PO HSPRN PRN sleep 10/31/23 10/31/23 Unknown History
Review of Systems
-
History Source: Patient
All other systems: Negative unless noted (Negative unless mentioned above)
Vitals / Labs / Diagnostic Testing
Vital Signs
Temp Pulse Resp BP Pulse Ox
97.3 F 71 20 135/66 94
11/01/23 07:39 11/01/23 08:29 11/01/23 06:30 11/01/23 08:29 11/01/23 06:30
Lab Data
11/01/23 04:53
11/01/23 04:53
Laboratory Results
10/31/23 10/31/23 10/31/23
16:18 21:02 23:37
PT
INR
APTT Cancelled
pH 7.32 L 7.34 L
pCO2 46 44
pO2 85 92
HCO3 23.7 23.7
O2 Delivery Level
11/01/23 11/01/23
04:53 08:32
PT 15.7 H
INR 1.26
APTT 45.8 H
pH 7.30 L
pCO2 52 H
pO2 169 H
HCO3 25.6
O2 Delivery Level
Diagnostic Testing:
Physical Exam
-
HEENT: Normocephalic and Anicteric
Cardiovascular: S1/S2
Respiratory: Clear, Wheeze (Negative), Rales (Negative), Rhonchi (Negative) and Non-Labored Respirations
GI: Soft, Non Tender, Normal Bowel Sounds and Other (Abdominal obesity)
Neurology: AO x 3 and Other (Lethargic but easily arousable to voice, following commands)
Skin: Warm and Dry
General: Comfortable and Sweats (Negative)
Assessment
-
Assessment: 53-year-old morbidly obese male with a PMHx of multiple sclerosis, hypertension, DM type II, and chronic opioid use disorder who presents from home after falling in the bathroom. He recently had a right TKA at [facility] and has
been taking opioids and benzodiazepines over the last few days. Patient was lethargic and hypotensive in the ER. CT head showed no acute intracranial abnormality, and CXR showed no acute cardiopulmonary process. He was given 1 L NS 0.9%, and
transferred to the ICU where he had additional IVF started and required Narcan X2, in addition to CPAP bled with 10L/min. Critical care services consulted for additional management/recommendations.
Chronic medical conditions [place]: MS, hypertension, DM type II c/b neuropathy, chronic opioid use disorder, morbid obesity
Impression:
#AMS likely due to overdose of opioids and benzodiazepines in setting of morbid obesity and suspected underlying MAHAD
#Acute respiratory failure with hypoxemia and hypercapnia
#Supplemental oxygen dependence (not on home oxygen)
#Syncope likely due to opioid and benzodiazepine overdose with fall onto right knee without acute fracture/dislocation
#Recent R�TKA
#Anemia
#Morbid obesity (BMI: 48)
#At increased risk for MAHAD (STOP-BAN at minimum)
Plan:
- Pain control but hold off on additional narcotics for now given his continued lethargy/AMS
- Will hold Xanax for now and make prn
- Will also hold lyrics for now as well until mentation improves
- Will continue PAP with sleep but will change CPAP to BiPAP and continue to bleed O2 through to maintain SpO2 >90-94%
- Continue with supplemental oxygen to maintain to maintain above SpO2 goals
- Please check walking pulse oximetry prior to discharge
- He is at increased risk for obstructive sleep apnea and sleep apnea testing should be performed and discussed as an outpatient - I will arrange for this
- Fall precautions until mentation improves; PT/OT
- Monitor Hb and transfuse as needed to maintain Hb >7 g/dL; transfuse platelets to maintain >20K
- Maintain MAP>65
- Goal BG 140-180mg/dL with ISS
- Replete electrolytes with K>4, Mg>2
- stress ulcer ppx: n/a
- DVT ppx: HSQ
Dispo: Patient is stable for transfer out of ICU to IMU. He may continue to require BiPAP during the day due to continued drowsiness albeit he is markedly improved compared to initial admission. Cardiovascular Surgeon/pulmonary service will now sign off.
Again, as mentioned above, I will arrange for outpatient office follow-up to discuss sleep apnea testing due to suspected sleep disordered breathing. Thank you for allowing us to be involved in the care of this patient. Please reconsult if there
are any additional questions/concerns, or if patient's respiratory status deteriorates.
Total time spent today was 55 minutes for this encounter. Time includes reviewing laboratory test/imaging results, reviewing pertinent medical records, obtaining and reviewing medical history, performing an appropriate exam, ordering medications,
tests and procedures. Time also includes documentation of this encounter, coordinating patient care and communicating with other healthcare professionals. Total time does not include separately billed tests performed on this date of service.
Data:
Right Knee XR 10-31-2023:
1. Intact total knee arthroplasty.
2. Suprapatellar joint fluid and adjacent soft tissue swelling.
CXR 10-31-2023: No acute cardiopulmonary process.
CT head 10-31-2023: No acute intracranial abnormality
[2023-11-01] MEDS: ZETIA 10 MG PO (08:28)
[2023-11-01] MEDS: THERAGRAN 1 TABLET PO (08:29)
[2023-11-01] MEDS: COREG 25 MG PO ×2 (08:29→20:10)
[2023-11-01] MEDS: HEPARIN 5000 UNITS SC ×2 (08:29→17:55)
[2023-11-01] MEDS: ASPIR LOW (ENTERIC COATED) 81 MG PO ×2 (08:29→20:10)
[2023-11-01] MEDS: COLACE 100 MG PO ×2 (08:29→20:10)
[2023-11-01] MEDS: MIRALAX 17 GRAMS PO (08:30)
--- NOTE | 2023-11-01 08:30 | PTCARENOTE ---
Received pt @ change of shift. Drowsy, awakens to verbal stimuli. Ox2 (self/time); required reorientation to place. SR on monitor. +2 LLE/+1 RLE; doppler pulses. Neurovascular checks completed per orders- see flow sheet. SpO2 98% on 15LMF;
capnography in place. +BS, abd soft/obese. Morales in place draining estefany urine. Dressing change completed w ortho; dry dressing and compression applied. LR infusing via #18 R FA, dressing patent, c/d/i. Bed alarm active. Instructed don how to
report care concerns and call roland in reach.
--- NOTE | 2023-11-01 08:49 | CON.ORTHO ---
Consultation
-
Date/Time Consultation Requested: 9:51 PM 10/31/2023
Date/Time Consultation Performed: 745 AM 11/01/2023
Requesting Provider: Primary
Performing Provider: Erickson
Reason for Consultation: recent right TKA
Consultation - Orthopedics
History
HPI: 53-year-old male history of recent right total knee arthroplasty presented to the emergency department with complaints of lethargy. He reportedly took significant narcotic medication and was quite somnolent and was brought to the emergency
department by his . He was subsequently admitted to the medical service and orthopedics was consulted for evaluation of right knee wound given his recent surgery. This morning patient is quite somnolent and somewhat belligerent with responses
when asked specific questions regarding his knee and was generally a poor historian. Per chart review, patient reportedly took 15 narcotic pain pills over the last couple of days. He did reportedly have right total knee arthroplasty performed 4
days ago in [place] at [facility] with a surgeon at [facility]. His nurse does report that he had a incisional wound VAC at home that he reportedly removed prior to presenting to the hospital.
Allergies / Home Medications
Past medical history: Multiple sclerosis, hypertension, diabetes with neuropathy, hyperlipidemia
Past surgical history: Hernia repair, recent right total knee arthroplasty
Family history: Not pertinent
Social history: Non-smoker, lives with
Allergy/AdvReac Type Severity Reaction Status Date / Time
No Known Allergies Allergy Unverified 01/01/21 13:38
�Medication �Instructions �Recorded
acetaminophen 500 mg tablet 1,000 mg PO Q6HPRN PRN mild pain 10/31/23
(Tylenol Extra Strength)
alprazolam 2 mg tablet (Xanax) 2 mg PO BID 10/31/23
aspirin 81 mg tablet,delayed 81 mg PO BID 10/31/23
release
carvedilol 25 mg tablet (Coreg) 25 mg PO BID 10/31/23
dapagliflozin propanediol 10 mg 10 mg PO DAILY 10/31/23
tablet (Farxiga)
ezetimibe 10 mg tablet (Zetia) 10 mg PO DAILY 10/31/23
losartan 100 mg tablet 100 mg PO DAILY 10/31/23
meloxicam 15 mg tablet 15 mg PO DAILYPRN PRN mild pain 10/31/23
oxycodone 5 mg tablet 5 mg PO Q6HPRN PRN severe pain 10/31/23
pregabalin 150 mg capsule (Lyrica) 150 mg PO BID 10/31/23
sennosides 8.6 mg tablet (senna) 8.6 mg PO BIDPRN PRN consstipation 10/31/23
therapeutic multivitamin 1 tab PO DAILY 10/31/23
zolpidem 10 mg tablet (Ambien) 10 mg PO HSPRN PRN sleep 10/31/23
Vital Signs / Lab Results
Temp Pulse Resp BP Pulse Ox
97.3 F 71 20 135/66 94
11/01/23 07:39 11/01/23 08:29 11/01/23 06:30 11/01/23 08:29 11/01/23 06:30
11/01/23 04:53
11/01/23 04:53
10 point review systems reviewed and negative unless otherwise stated
General: Somnolent, unable to answer questions appropriately
Musculoskeletal right lower extremity
There is moderate swelling over the right knee, there is some evidence of decompressed blistering anterior knee, the incision is intact without any wound dehiscence
Range of motion testing deferred
Mild palpable effusion
Positive EHL, FHL, ankle dorsiflexion, plantarflexion
Distal extremity warm and pink
Diagnostic studies
X-rays right knee reviewed by myself independently. Shows appropriately positioned right total knee arthroplasty without evidence of obvious fracture or gross subsidence
Assessment / Plan
53-year-old male history of MS, diabetes status post recent right total knee arthroplasty. Incision is intact. There is some evidence of some blistering noted soft tissues anterior knee. No evidence of drainage. No evidence of obvious infection
on my examination. Would not recommend any acute orthopedic intervention. Would recommend daily dry dressing changes. Would recommend close outpatient follow-up with his surgeon of record.
Weightbearing as tolerated right lower extremity
PT OT
Pain control
Daily dry dressing changes consisting of ABD and Roger wrap
Follow-up outpatient with primary orthopedic surgeon who performed recent total knee arthroplasty
Please reach out any questions or concerns
[2023-11-01 08:52] LABS: B.E. -1.4 mmol/L; HCO3 25.6 mmol/L (21-28); O2 Saturation % 98.9 % (94-98); PCO2 52 mmHg (35-48); PO2 169 mmHg (83-108)
--- NOTE | 2023-11-01 09:27 | CM ---
CM following re: discharge planning.
Reviewed pt's chart, met with pt.
Pt is a 53 year old male, admitted with OBS status and primary dx of Lethargy, Weakness, Passed out. OBS status explained to the pt, pt expressed his understanding, signed OBS letter, placed in chart, pt has a copy.
Pt reports he lives with spouse and 2 children in a condo, 2 story, no steps. Pt described himself as independent in all areas [employer], works, drives. No DME, VN or SNF history.
PCP: Teodoro Conde
Pharmacy: [facility]
D/C plan: home with anticipated no needs. Family to transport at discharge.
CM will follow with discharge plan updates as hospitalization progresses
[2023-11-01 09:49] LABS: Glucose - Point of Care 161 mg/dl (70-99)
[2023-11-01] MEDS: NOVOLOG FLEXPEN-LOW RESISTANCE 1 UNITS SC ×2 (11:38→12:37)
[2023-11-01 12:45] LABS: Glucose - Point of Care 156 mg/dl (70-99)
[2023-11-01 12:46] LABS: Urine Albumin Trace (Neg - Trace); Urine Bilirubin Negative (Negative); Urine Character Clear (Clear); Urine Color Yellow; Urine Glucose Trace (Negative); Urine Ketone 1+ (Negative); Urine Leukocyte Negative (Negative); Urine Nitrite Negative (Negative); Urine Occult Blood 2+ (Negative); Urine Urobilinogen Negative (Neg - 1+)
--- NOTE | 2023-11-01 14:00 | PTCARENOTE ---
Pt. awake/alert; ox3; appropriate. O2 titrated down to 4LNC; capnography remains in place; readings relayed to shale processing technician. Tolerating meals, + appetite. Activity order confirmed w ortho, pt. OOB as adriana/ FWB on RLE. PT/OT saw pt and assisted x 2
OOB to chair; RLE weak/unsteady @ x's w direction. Remained OOB to chair approx 2H. Assisted x 2 back to bed w RW. @ bedside, updated on plan of care. Pt. instructed on how to report care concerns and call roland in reach.
[2023-11-01 14:46] LABS: Urine Amorphous Seen; Urine Bacteria Few (Negative); Urine Mucus Few; Urine White Cell 0-2 /HPF (0-5)
[2023-11-01] MEDS: LR IV (16:09)
--- NOTE | 2023-11-01 16:22 | W.PN.HOSP.TC ---
Today's Communication/Plan
-
Needed Narcan overnight
Now more alert
Avoid narcotics
Hold Lyrica
Transfer to IMU
Assessment / Plan
Assessment / Plan
Physical Exam
General: No Apparent Distress
HEENT: Normocephalic
Respiratory: Clear to Auscultation Bilaterally
Cardiac: S1/S2 and Regular Rhythm
GI: Soft, Non Tender and Normal Bowel Sounds
Musculoskeletal: No Cyanosis and Other (Right knee in dressing for post knee replacement)
Skin: Warm and Dry
Neuro: Lethargic
Psych: Calm and Intact Judgment/Insight
Assessment/Plan
Lethargy Episodes Post-Op Recent Surgery
Required Narcan 10/04/23-11/01/23 overnight
Recent Total Knee Replacement 3 days prior to presentation
Syncope likely due to narcotic and benzodiazepine overdose with fall onto right knee without acute fracture/dislocation
-Reportedly he took 15 narcotic pain pills in the 1-2 days prior to presentation
-He has a history of needing Narcan from narcotics
-Will consider echo
-Avoid all narcotic pain medications
-Hold Lyrica for now
-Change home CPAP to BiPAP and bleed O2 in to maintain O2 sat 90% to 94%
-Continue home scheduled Xanax to avoid withdrawal or seizures
-Lovenox DVT PPx
-Wound care
-Neurovascular checks
-Continue tele monitoring
-Orthopedics consulted, recommendations appreciated: Weightbearing as tolerated right lower extremity, PT/OT, Pain control, Daily dry dressing changes consisting of ABD and Roger wrap, Follow-up outpatient with primary orthopedic surgeon who performed
recent total knee arthroplasty
-Ambulatory pulse ox prior to discharge
-Sleep apnea testing outpatient
Concern for Acute Kidney Injury - RESOLVED
-Patient with no PO intake for 1-2 days on presentation
-Status post IV fluids
Multiple Sclerosis on Copaxone
-Asked patient's to bring in the medicine so he can continue it here
Hypertension - Hold home Losartan given renal function-- if renal function continues to improve/remains stable, can consider resuming in 1 to 2 days
Type 2 Diabetes Mellitus - Sliding Scale Insulin and Accuchecks. Hold Farxiga for now.
Code Status: Full Code
DVT PPx: Heparin
Anticipated Discharge: 24 - 48 hours
Subjective/Interval History
-
Date of Service: November 01, 2023
Patient was seen and examined. He was very drowsy in the morning when he was seen, but later in the day he was more alert as per assistant housekeeping manager. Overnight, patient became more lethargic and required Narcan.
Objective Data
-
Labs:
Laboratory Results
11/01/23 11/01/23
04:53 08:32
WBC 10.6
Hgb 11.3 L
Hct 35.0 L
Plt Count 145 D
PT 15.7 H
INR 1.26
APTT 45.8 H
HCO3 25.6
Sodium 134 L
Potassium 4.2
Chloride 105
Carbon Dioxide 24
BUN 41 H
Creatinine 1.2
Glucose 150 H
Calcium 8.5
Total Bilirubin 2.6 H
AST 78 H
ALT 36
Alkaline Phosphatase 73
Vital Signs:
Vital Signs
Temp Pulse Resp BP Pulse Ox
98.4 F 75 17 128/78 90
11/01/23 15:27 11/01/23 13:00 11/01/23 13:00 11/01/23 13:00 11/01/23 12:45
I&O
10/31/23 11/01/23 11/02/23
06:59 06:59 06:59
Intake Total 1300 / 1425 1000 / 1000
Output Total 2000 / 1999 1100 / 1100
Balance -700 / -575 -100 / -100
[2023-11-01] MEDS: NOVOLOG FLEXPEN-LOW RESISTANCE SC (16:30)
[2023-11-01 16:38] LABS: Glucose - Point of Care 141 mg/dl (70-99)
--- NOTE | 2023-11-01 17:29 | PTCARENOTE ---
Morales catheter removed and IVF d/c'd per orders. Attempted to wean to RA; pt. SpO2 dropped to 79% on RA whiel asleep; 2lNC reapplied and SpO2 recovered back into 90's. RT made aware of pt. desaturation while asleep; pt awake on RT arrival to to
place BiPAP, remains on 2LNC while awake; plan for BiPAP form naps/sleep. Pt. instructed on plan of care. Call roland remains w in reach.
--- NOTE | 2023-11-01 20:50 | PTCARENOTE ---
pt said he had to have a BM attempted to get pt up to the bedside commode... used walker to stand. after being on the toilet he said he was too uncomfortable and wouldn't be able to use the commode. tried to get him off with 2 assist and he wasn't
able to stand up. took a total of 6 nurses to get him off the toilet and back into bed.
[2023-11-01 21:31] LABS: Glucose - Point of Care 186 mg/dl (70-99)
[2023-11-02] VITALS (11 sets, daily range): BP systolic 132–173; BP diastolic 66–108; BMI 48.4
[2023-11-02] MEDS: HEPARIN 5000 UNITS SC ×2 (00:38→07:59)
--- NOTE | 2023-11-02 00:47 | PTCARENOTE ---
pt refused bipap said it feels like someone put a 'firehose' on his face.
[2023-11-02] MEDS: OFIRMEV 100 IV (01:08)
--- NOTE | 2023-11-02 03:15 | PTCARENOTE ---
pt c/o pain in his right knee, offered tylenol to him he states that he would rather not take anything because tylenol doesnt work. texted shirt sorter for another option for him offirmiv ordered and given. pt alseep for an hour after administration then he
woke up took off oxygen, heart monitor, BP cuff, and pulse ox. explained to pt the importance of all the monitoring equipment he states that he doesn't care he doesn't need it. claims that he will be out the door in 3 hours anyway. will not allow me
to put the oxygen back on him, he says he doesnt wear it at home hes not wearing it here. will not allow me to put the pulse ox on him either, he says that i wont keep asking him to put his oxygen back on if i cant see what his numbers are. despite
education pt refusing oxygen.
[2023-11-02 04:42] LABS: % Basophils 0.5 % (0-2); % Eosinophils 6.1 % (0-6); % Immature Granulocytes 0.3 % (0-0.5); % Lymphocytes 20.5 % (20.5-51.1); % Monocytes 10.6 % (1.7-9.3); Absolute Eosinophils 0.4 10^3/uL (0-0.7); Absolute Lymphocytes 1.4 10^3/uL (1.2-3.4); Absolute Monocytes 0.7 10^3/uL (0.1-0.6); Absolute Neutrophils 4.1 10^3/uL (1.4-6.5); Hematocrit 31.9 % (39.0-52.0); Hemoglobin 10.8 g/dL (13.0-18.0); Mean Corp Hgb Conc. 33.9 g/dL (33.0-37.0); Mean Corpuscular Hgb 28.7 pg (27.0-31.0); Mean Corpuscular Volume 84.8 fL (80.0-94.0); Mean Platelet Volume 11.7 fL (7.4-10.4); Nucleated Red Blood Cells % 0 % (-); Platelet Count 137 10^3/uL (130-400); Red Blood Cell Count 3.76 10^6/uL (4.70-6.10); Red Cell Dist. Width 13.8 % (11.5-14.5); White Blood Cell Count 6.6 10^3/uL (4.8-10.8)
[2023-11-02 04:56] LABS: Venous Blood Gas HCO3 27.9 mmol/L (22-27); Venous Blood Gas O2 Sat % 99.4 %; Venous Blood Gas pCO2 43 mmHg (35-48); Venous Blood Gas pH 7.42 (7.32-7.43); Venous Blood Gas pO2 224 mmHg (30-50)
[2023-11-02 05:13] LABS: ALT (SGPT) 38 U/L (0-50); AST (SGOT) 54 U/L (17-59); Albumin 2.7 g/dl (3.5-5.0); Alkaline Phosphatase 68 U/L (38-126); Blood Urea Nitrogen 21 mg/dl (9-20); Calcium 8.4 mg/dl (8.4-10.2); Carbon Dioxide 24 mmol/L (22-30); Chloride 107 mmol/L (98-107); Estimated Creatinine Clearance > 125 ml/min; Glucose 158 mg/dl (70-99); Magnesium 1.7 mg/dl (1.6-2.3); Phosphorus 2.6 mg/dl (2.5-4.5); Potassium 3.9 mmol/L (3.5-5.1); Sodium 137 mmol/L (135-145); Total Bilirubin 2.5 mg/dl (0.2-1.3); Total Protein 5.2 g/dl (6.3-8.2); eGFR > 60.00
--- NOTE | 2023-11-02 07:44 | W.PN.HOSP.TC ---
Today's Communication/Plan
-
Continue on nonnarcotic pain relief with acetaminophen only
need to avoid Toradol due to bleeding risk and recent knee replacement
May be able to take an NSAID orally
Will need to sign out AGAINST MEDICAL ADVICE if he has difficulty with ambulation with PT or does not want to wait for
Assessment / Plan
Assessment / Plan
Physical Exam
General: No Apparent Distress
HEENT: Normocephalic
Respiratory: Clear to Auscultation Bilaterally
Cardiac: S1/S2 and Regular Rhythm
GI: Soft, Non Tender and Normal Bowel Sounds
Musculoskeletal: No Cyanosis and Other (Right knee in dressing for post knee replacement)
Skin: Warm and Dry
Neuro: Lethargic
Psych: Calm and Intact Judgment/Insight
Assessment/Plan
Lethargy Episodes Post-Op Recent Surgery
Required Narcan 10/04/23-11/01/23 overnight
Recent Total Knee Replacement 3 days prior to presentation
Syncope likely due to narcotic and benzodiazepine overdose with fall onto right knee without acute fracture/dislocation
-Reportedly he took 15 narcotic pain pills in the 1-2 days prior to presentation
-He has a history of needing Narcan from narcotics
-Will consider echo
-Avoid all narcotic pain medications
-Hold Lyrica for now
-Change home CPAP to BiPAP and bleed O2 in to maintain O2 sat 90% to 94%
-Continue home scheduled Xanax to avoid withdrawal or seizures
-Lovenox DVT PPx
-Wound care
-Neurovascular checks
-Continue tele monitoring
-Orthopedics consulted, recommendations appreciated: Weightbearing as tolerated right lower extremity, PT/OT, Pain control, Daily dry dressing changes consisting of ABD and Roger wrap, Follow-up outpatient with primary orthopedic surgeon who performed
recent total knee arthroplasty
-Ambulatory pulse ox prior to discharge
-Sleep apnea testing outpatient
Concern for Acute Kidney Injury - RESOLVED
-Patient with no PO intake for 1-2 days on presentation
-Status post IV fluids
Multiple Sclerosis on Copaxone
-Asked patient's to bring in the medicine so he can continue it here
Hypertension - Hold home Losartan given renal function-- if renal function continues to improve/remains stable, can consider resuming in 1 to 2 days
Type 2 Diabetes Mellitus - Sliding Scale Insulin and Accuchecks. Hold Farxiga for now.
Code Status: Full Code
DVT PPx: Heparin
Anticipated Discharge: Today
Subjective/Interval History
-
Date of Service: November 02, 2023
Expressing need to leave no matter what today whether it is AGAINST MEDICAL ADVICE or after physical therapy after our discussion agrees to await physical therapy assessment. No longer lethargic
Objective Data
-
Labs:
Laboratory Results
11/02/23
04:22
WBC 6.6
Hgb 10.8 L
Hct 31.9 L
Plt Count 137
Sodium 137
Potassium 3.9
Chloride 107
Carbon Dioxide 24
BUN 21 H
Creatinine 0.6 L
Glucose 158 H
Calcium 8.4
Total Bilirubin 2.5 H
AST 54
ALT 38
Alkaline Phosphatase 68
Vital Signs:
Vital Signs
Temp Pulse Resp BP Pulse Ox
98.7 F 73 16 143/81 88
11/02/23 03:00 11/02/23 07:00 11/02/23 07:00 11/02/23 06:00 11/02/23 03:00
I&O
11/01/23 11/02/23 11/03/23
06:59 06:59 06:59
Intake Total 1300 / 1425 1000 / 1000
Output Total 1999 / 1999 2850 / 2850
Balance -700 / -575 -1850 / -1850
Review of Systems
-
History Source: Patient
Physical Exam
-
General: Obese
HEENT: Normocephalic
Respiratory: Clear to Auscultation
Cardiac: Regular Rhythm
GI: Soft and Nontender
Musculoskeletal: Edema, Right Lower Extrem (Right knee Roger wrap)
Skin: Warm
Psych: Anxious
Data Reviewed
-
Total Time Spent with Patient (in minutes): 56
Labs: Labs Reviewed by me (Hemoglobin 10.8 stable)
[2023-11-02 07:56] LABS: Glucose - Point of Care 167 mg/dl (70-99)
[2023-11-02] MEDS: ASPIR LOW (ENTERIC COATED) 81 MG PO (07:57)
[2023-11-02] MEDS: NOVOLOG FLEXPEN-LOW RESISTANCE 1 UNITS SC (07:57)
[2023-11-02] MEDS: COLACE 100 MG PO (07:58)
[2023-11-02] MEDS: ZETIA 10 MG PO (07:58)
[2023-11-02] MEDS: COREG 25 MG PO (07:58)
[2023-11-02] MEDS: MIRALAX PO ×2 (07:59→10:48)
[2023-11-02] MEDS: THERAGRAN 1 TABLET PO (07:59)
--- NOTE | 2023-11-02 10:39 | CM ---
Patient seen at bedside. Patient states that he is going home today with support. Patient states that he had [facility] prior to admission and he wants them to restart for his knee. CM confirmed with Kailee and sent updated clinicals to [facility] via
all scripts. CM will update physician. CM will continue to follow for discharge planinng needs.
Plan; home with [facility].
[2023-11-02] MEDS: COZAAR 100 MG PO (10:46)
--- NOTE | 2023-11-02 11:37 | W.PN.ID1 ---
Date of Service
Date of Service: November 02, 2023
Today's Communication
Sign off.
Assessment / Plan
Syncope
Leukocytosis; improved
Suspected narcotic overdose
S/p right total knee arthroplasty
Recommendations:
Leukocytosis has quickly resolved. No clinical evidence of joint infection at present.
Continue off of antibiotics.
Little more to offer from a Infectious Diseases standpoint.
Will see again at your request.
Chief Complaint
-: Leukocytosis
Subjective / Review of Systems
Little right knee pain.
Review of Systems: No Fever and No Chills
Vital Signs / Physical Exam
Vital Signs
Vital Signs
Temp Pulse Resp BP Pulse Ox
98.6 F 68 20 165/96 96
11/02/23 11:19 11/02/23 11:19 11/02/23 11:19 11/02/23 11:19 11/02/23 11:19
Physical Exam
Constitutional: No Acute Distress, Comfortable, Non-toxic and Obese
Eyes: Sclera Anicteric
Cardiovascular: S1/S2; Negative S3/S4
Pulmonary: Non Labored
Gastrointestinal: Soft and Non Tender
Extremities: Edema (Lower extremities 2+); Negative Erythema
Neurological: Awake and Alert
Psychological: Calm
Objective Data
Lab Data
Lab Results
11/02/23 04:22
11/02/23 04:22
PT 15.7 Sec (11.4-14.6) H 11/01/23 04:53
INR 1.26 11/01/23 04:53
APTT 45.8 Sec (23.4-35.0) H 11/01/23 04:53
Estimated Creat Clear > 125 ml/min 11/02/23 04:22
Lactic Acid 1.7 mmol/L (0.7-2.0) 10/31/23 21:09
Total Bilirubin 2.5 mg/dl (0.2-1.3) H 11/02/23 04:22
AST 54 U/L (17-59) 11/02/23 04:22
ALT 38 U/L (0-50) 11/02/23 04:22
Alkaline Phosphatase 68 U/L (38-126) 11/02/23 04:22
Most recent labs reviewed.
Micro Results:
10/31/23 20:21 Urine Culture - Final
Urine NO GROWTH
11/01/23 04:53 Blood Culture - Preliminary
Blood/Venous No Growth in 24 hours- Final report to follow
11/01/23 11:57 Blood Culture - Pending
Blood/Venous
Imaging:
10/31/2023 X-ray (right knee): Intact total knee arthroplasty. There is suprapatellar joint fluid and adjacent soft tissue swelling noted. Please see full dictation for additional detail. Film personally viewed.
10/31/2023 CXR (2 view): Low lung volumes noted. No focal consolidation, pleural effusion or pneumothorax seen. Cardiac silhouette mildly enlarged. Film personally viewed.
--- NOTE | 2023-11-02 11:42 | W.DS.TRANS ---
DC Summary - Winchman/Crane Operator
-
Discharge Instructions:
Discharge Diagnosis/Procedures Toxic metabolic encephalopathy from narcotics
Diet No restrictions
Additional Activity As tolerated with prior levels of instructions
from orthopedic
Driving Restrictions No driving
Other Services VN,PT,OT
Instructions:
Stand-Alone Forms:
Changes to Home Medications: Yes
Discharge Medications:
DC Medications w/original date entered in [employer]
acetaminophen 500 mg tablet (Tylenol Extra Strength) 1,000 mg PO Q6HPRN PRN mild pain 10/31/23
alprazolam 2 mg tablet (Xanax) 2 mg PO BID 10/31/23
aspirin 81 mg tablet,delayed release 81 mg PO BID 10/31/23
carvedilol 25 mg tablet (Coreg) 25 mg PO BID 10/31/23
dapagliflozin propanediol 10 mg tablet (Farxiga) 10 mg PO DAILY 10/31/23
ezetimibe 10 mg tablet (Zetia) 10 mg PO DAILY 10/31/23
losartan 100 mg tablet 100 mg PO DAILY 10/31/23
meloxicam 15 mg tablet 15 mg PO DAILYPRN PRN mild pain 10/31/23
pregabalin 150 mg capsule (Lyrica) 150 mg PO BID 10/31/23
sennosides 8.6 mg tablet (senna) 8.6 mg PO BIDPRN PRN consstipation 10/31/23
therapeutic multivitamin 1 tab PO DAILY 10/31/23
Home Medication Changes
Stop oxycodone and other narcotics and never take with in combination with sedation medication such as alprazolam or zolpidem
Pending Results: No
Total time spent discharging patient (in min): 45
--- NOTE | 2023-11-02 13:17 | PTCARENOTE ---
Patient received in AM with assessment as noted. Continues alert and oriented with a grudgingly cooperative affect. OOB to chair and commode and transfers with 1 person assist using a rolling walker. Seen by PT and ambulated [address]
NSR on monitor. Afebrile. More hypertensive through the morning, aware and his home medication, Losartan 100 mg PO daily restarted. B/P's subsequently slightly improved. Afebrile. Lungs CTA, Sao2 95% on room air. Appetite good. Had a
brown formed bowel movement this AM. Voiding ad rodrigue. Right knee dressing changed. For d/c to home and Dr's instructions reviewed with patient and his . Patient vocalized understanding and signed and received copy of same. INT's and monitors
removed. Patient dressed himself and was transported to exit via W/C accompanied by staff and who then drove him home.
--- NOTE | 2023-11-02 13:30 | W.DCSUMMARY ---
Discharge Summary
Discharge Data
Date of Admission: 11/02/23
Date of Discharge: 11/02/23
-
Pending Results: No
Hospital Course
53 y/o male with past medical history of requiring narcan with narcotic pain medications, multiple sclerosis on Copaxone, hypertension and type 2 diabetes mellitus with neuropathy, and hyperlipidemia presented after having a total knee replacement 3
days go, and discharged 2 days ago. Patient was lethargic today and fell on the bathroom floor; reportedly he took 15 narcotic pain medications in the past 2 days. Patient was not a great historian so his helped with patient's history. Patient
denied any dizziness, chest pain or palpitations. Patient recently had knee right surgery at [facility] by Dr. Saucedo who is with [facility].
Patient was admitted to ICU given the level of lethargy after his initial evaluation in ED and him having go to the medical floor although remains lethargic he remained conversive with low BP with initial concern of sepsis. His total knee
replacement however it became more apparent that the patient was suffering from acute opioid overdose given the history and the combination of benzodiazepine use which she had been on. The patient has surprisingly responded to Narcan and became
more responsive and able to manage his airway and respiratory rate increased after transfer to ICU he was placed on CPAP for periods of apnea and actually required another repeat dosing of Narcan with again a increased level of response and thusly
as needed Narcan was ordered. Given his level of leukocytosis on his initial presentation and infectious ease consultation was placed and was placed on empiric dosing of vancomycin however after ID recommendations and evaluation no further
antibiotics were recommended and close observation undertaken. Following his white count and temperature curve this remained stable along with his clinical knee exam. He was also seen by the orthopedic service in relation to his recent knee
presentation with weightbearing as tolerated recommended the right lower extremity and PT OT undertaken on the date of his discharge. Pain management would include the complete avoidance of narcotic analgesia and also we withheld his Lyrica dosing
during hospitalization Daily dressing changes consistent with ABD and Roger wrap were continue to be recommended and he will have follow-up outpatient with his primary orthopedic surgeon who performed his most recent knee arthroplasty. We will make
arrangements for continued PT OT follow-up in outpatient basis and he has been recommended to follow-up with his emission specialist as scheduled. We again reiterated the need to avoid any narcotic analgesia going forward especially in light of
his benzodiazepine usage which should also try to be minimized if not avoided especially in combination with.
Discharge Plan
-
Patient Disposition: Home with Home Care
Discharge Diagnosis/Procedures: Toxic metabolic encephalopathy from narcotics
Diet: No restrictions
Additional Activity: As tolerated with prior levels of instructions from orthopedic
Driving Restrictions: No driving
Other Services: VN, PT and OT
Referrals:
Teodoro Conde MD [Family Provider] -
Additional Discharge Medication Instructions: You should not ever take combination of alprazolam and any narcotics in the future also avoid Ambien and that combination
Prescriptions:
Continued
carvedilol [Coreg] 25 mg Tablet
25 mg PO BID
sennosides [senna] 8.6 mg Tablet
8.6 mg PO BIDPRN PRN (Reason: consstipation)
meloxicam 15 mg Tablet
15 mg PO DAILYPRN PRN (Reason: mild pain)
therapeutic multivitamin Tablet
1 tab PO DAILY
aspirin 81 mg Tablet,Delayed Release (Dr/Ec)
81 mg PO BID
acetaminophen [Tylenol Extra Strength] 500 mg Tablet
1,000 mg PO Q6HPRN PRN (Reason: mild pain)
alprazolam [Xanax] 2 mg Tablet
2 mg PO BID
losartan 100 mg Tablet
100 mg PO DAILY
ezetimibe [Zetia] 10 mg Tablet
10 mg PO DAILY
pregabalin [Lyrica] 150 mg Capsule
150 mg PO BID
dapagliflozin propanediol [Farxiga] 10 mg Tablet
10 mg PO DAILY
Rx Instructions:
on hold from surgery
Discontinued
zolpidem [Ambien] 10 mg Tablet
10 mg PO HSPRN PRN (Reason: sleep)
oxycodone 5 mg Tablet
5 mg PO Q6HPRN PRN (Reason: severe pain)
Discharge Orders:
Discharge Patient (As Directed); Ordered 11/02/23
Ordered By: Ravi Medina
Discharge Date and Time
Print Language: UKRAINIAN
== END 2023-11-02 13:56 | disposition home health service (06) | DRG 917 ==
LOC: ICU 09:55
PROVIDERS: Nurse Practitioner Gerontology; Nurse Practitioner Primary Care; ADMITTING PHYSICIAN Hospitalist; ATTENDING PHYSICIAN Internal Medicine; CONSULT PHYSICIAN Internal Medicine Critical Care Medicine; CONSULT PHYSICIAN Internal Medicine Infectious Disease; CONSULT PHYSICIAN Orthopaedic Surgery; EMERGENCY PHYSICIAN Emergency Medicine; FAMILY PHYSICIAN Internal Medicine
PROC: 0T9B70Z Drainage of Bladder with Drainage Device, Via Natural or Artificial Opening (ICD-10-PCS; 2023-10-31)
PROC: 5A09357 Assistance with Respiratory Ventilation, Less than 24 Consecutive Hours, Continuous Positive Airway Pressure (ICD-10-PCS; 2023-10-31)
DX: T40.2X1A Poisoning by other opioids, accidental (unintentional), initial encounter (principal); G92.8 Other toxic encephalopathy; J96.01 Acute respiratory failure with hypoxia; J96.02 Acute respiratory failure with hypercapnia; N17.9 Acute kidney failure, unspecified; Z68.42 Body mass index [BMI] 45.0-49.9, adult; E87.1 Hypo-osmolality and hyponatremia; E87.29 Other acidosis; T42.4X1A Poisoning by benzodiazepines, accidental (unintentional), initial encounter; E11.40 Type 2 diabetes mellitus with diabetic neuropathy, unspecified; R33.9 Retention of urine, unspecified; E86.0 Dehydration; R55 Syncope and collapse; D64.9 Anemia, unspecified; W18.39XA Other fall on same level, initial encounter; Y93.01 Activity, walking, marching and hiking; Y92.002 Bathroom of unspecified non-institutional (private) residence as the place of occurrence of the external cause; G47.33 Obstructive sleep apnea (adult) (pediatric); I95.9 Hypotension, unspecified; E66.01 Morbid (severe) obesity due to excess calories; F11.10 Opioid abuse, uncomplicated; I10 Essential (primary) hypertension; G35 Multiple sclerosis; Z96.651 Presence of right artificial knee joint; Z87.891 Personal history of nicotine dependence; Z79.82 Long term (current) use of aspirin; Z79.84 Long term (current) use of oral hypoglycemic drugs
CPT/HCPCS: 36600; 51702; 51798; 70450; 71046; 73564; 80048; 80053; 80143; 80179; 80202; 80306; 80307; 81003; 81015; 82077; 82805; 82962; 83036; 83605; 83735; 84100; 84145; 84484; 85025; 85027; 85610; 85730; 87040; 87086; 93005; 94660; 94760; 96361; 96374; 97116; 97163; 97167; 97530; 99285